=== PATIENT | male | born 1970 | race Caucasian/White ===

== ENCOUNTER 2021-11-05 05:54 | Inpatient (IN) | payer BC ==
[2021-11-05] MEDS ORDERED: SODIUM CHLORIDE 0.9% 1,000 ML IV STA (06:28)
[2021-11-05] MEDS ORDERED: SODIUM CHLORIDE 0.9% 500 ML 500 ML IV STA (06:28)
[2021-11-05] MEDS ORDERED: ONDANSETRON 4 MG/2 ML VIAL IVP STA (06:28)
[2021-11-05] MEDS ORDERED: HYDROmorphone 0.5 MG/0.5 ML SYRINGE IVP STA (06:28)
[2021-11-05 07:02] LABS: Basophils # (A) 0.2 k/uL (0-0.2); Basophils % (A) 2 %; Eosinophils # (A) 0.1 k/uL (0-0.7); Eosinophils % (A) 1 %; HCT 51.1 % (39.0-53.0); HGB 16.9 gm/dL (13.0-17.5); Lymphocytes # (A) 0.5 k/uL (1.0-4.8); Lymphocytes % (A) 7 %; MCH 32.2 pg (25.0-35.0); MCHC 33.1 g/dL (31.0-37.0); Mean Platelet Volume 7.2; Monocytes # (A) 0.8 k/uL (0-1.0); Monocytes % (A) 11 %; Neutrophils # (A) 5.6 k/uL (1.3-7.7); Neutrophils % (A) 77 %; Platelet Count 327 k/uL (150-450); RBC 5.26 m/uL (4.30-5.90); RDW 13.1 % (11.5-15.5); WBC 7.3 k/uL (3.8-10.6)
[2021-11-05 07:18] LABS: ALT 57 U/L (4-49); AST 61 U/L (17-59); African American GFR (CKD) >90 (>60 ml/min/1.73 sqM); Albumin 4.2 g/dL (3.5-5.0); Alkaline Phosphatase 146 U/L (38-126); Amylase 80 U/L (30-110); Anion Gap 11 mmol/L; Blood Urea Nitrogen 16 mg/dL (9-20); Carbon Dioxide 26 mmol/L (22-30); Chloride 100 mmol/L (98-107); Glucose 105 mg/dL (74-99); Lipase 112 U/L (23-300); Non-African American GFR(CKD) 88 (>60 ml/min/1.73 sqM); Potassium 4.4 mmol/L (3.5-5.1); Sodium 137 mmol/L (137-145); Total Bilirubin 0.5 mg/dL (0.2-1.3)
--- NOTE | 2021-11-05 07:25 | ED ---
Abdominal Pain HPI - General Chief Complaint: Abdominal Pain Stated Complaint: Abd Pain, Back Pain Time Seen by Provider: 11/05/21 06:15 Source: patient, RN notes reviewed Mode of arrival: ambulatory Limitations: no limitations - History of Present Illness Initial Comments: This a 51-year-old male presents emergency Department chief complaint of abdominal pain. Patient states his been having increasing abdominal pain in which she states she's not had a bowel movement in one week. Patient states she's had multiple surgeries back in 2011 after he fell when she had back, rib injuries, splenectomy, bowel resection. Patient states he feels like he has an obstruction he states he is not passing gas no stool states he did take a softener which made his abdomen hurt worse. Patient states she's been burping, increasing nausea and discomfort. No reported fever no chest pain or shortness of breath states he has burning in his back states his issues with his back after his fall. He denies any bowel, bladder incontinence or retention denies any saddle anesthesia - Related Data Allergies Allergy/AdvReac Type Severity Reaction Status Date / Time No Known Allergies Allergy Verified 06/26/21 08:58 Review of Systems ROS Statement: Those systems with pertinent positive or pertinent negative responses have been documented in the HPI. ROS Other: All systems not noted in ROS Statement are negative. Past Medical History Past Medical History: No Reported History History of Any Multi-Drug Resistant Organisms: None Reported Past Surgical History: Bowel Resection, Hernia Repair, Orthopedic Surgery Additional Past Surgical History / Comment(s): colostomy reversal, pelvic fx Past Psychological History: No Psychological Hx Reported Smoking Status: Current every day smoker Past Alcohol Use History: Occasional Past Drug Use History: Marijuana General Exam Limitations: no limitations General appearance: alert, in no apparent distress Head exam: Present: atraumatic, normocephalic, normal inspection Eye exam: Present: normal appearance, PERRL, EOMI. Absent: scleral icterus, conjunctival injection, periorbital swelling Neck exam: Present: normal inspection. Absent: tenderness, meningismus, lymphadenopathy Respiratory exam: Present: normal lung sounds bilaterally. Absent: respiratory distress, wheezes, rales, rhonchi, stridor Cardiovascular Exam: Present: normal rhythm, tachycardia, normal heart sounds. Absent: systolic murmur, diastolic murmur, rubs, gallop, clicks GI/Abdominal exam: Present: soft, tenderness, normal bowel sounds. Absent: distended, guarding, rebound, rigid Neurological exam: Present: alert Skin exam: Present: warm, dry, intact, normal color. Absent: rash Course Vital Signs 11/05/21 11/05/21 06:00 07:51 Temperature 98.5 F 100.7 F H Pulse Rate 122 H 99 Respiratory 24 20 Rate Blood Pressure 104/62 118/69 O2 Sat by Pulse 98 95 Oximetry Medical Decision Making - Medical Decision Making 51-year-old male presented for abdominal pain CT shows multiple hernias with some narrowing questionable early signs obstruction patient has had prior splenectomy which patient has developed a fever. Patient's lab work did not reveal any acute findings. Chest x-ray, COVID-19 were added pending urinalysis. I did discuss the case with Dr. Lu accepts admission. - Lab Data Result diagrams: 11/05/21 06:48 11/05/21 06:48 Lab Results 11/05/21 11/05/21 11/05/21 Range/Units 06:48 06:48 06:48 WBC 7.3 (3.8-10.6) k/uL RBC 5.26 (4.30-5.90) m/uL Hgb 16.9 (13.0-17.5) gm/dL Hct 51.1 (39.0-53.0) % MCV 97.0 (80.0-100.0) fL MCH 32.2 (25.0-35.0) pg MCHC 33.1 (31.0-37.0) g/dL RDW 13.1 (11.5-15.5) % Plt Count 327 (150-450) k/uL MPV 7.2 Neutrophils % 77 % Lymphocytes % 7 % Monocytes % 11 % Eosinophils % 1 % Basophils % 2 % Neutrophils # 5.6 (1.3-7.7) k/uL Lymphocytes # 0.5 L (1.0-4.8) k/uL Monocytes # 0.8 (0-1.0) k/uL Eosinophils # 0.1 (0-0.7) k/uL Basophils # 0.2 (0-0.2) k/uL Sodium 137 (137-145) mmol/L Potassium 4.4 (3.5-5.1) mmol/L Chloride 100 (98-107) mmol/L Carbon Dioxide 26 (22-30) mmol/L Anion Gap 11 mmol/L BUN 16 (9-20) mg/dL Creatinine 0.99 (0.66-1.25) mg/dL Est GFR (CKD-EPI)AfAm >90 (>60 ml/min/1.73 sqM) Est GFR (CKD-EPI)NonAf 88 (>60 ml/min/1.73 sqM) Glucose 105 H (74-99) mg/dL Plasma Lactic Acid [place] 1.1 (0.7-2.0) mmol/L Calcium 9.0 (8.4-10.2) mg/dL Total Bilirubin 0.5 (0.2-1.3) mg/dL AST 61 H (17-59) U/L ALT 57 H (4-49) U/L Alkaline Phosphatase 146 H (38-126) U/L Total Protein 7.0 (6.3-8.2) g/dL Albumin 4.2 (3.5-5.0) g/dL Amylase 80 (30-110) U/L Lipase 112 (23-300) U/L Disposition Clinical Impression: Abdominal pain, Fever, unknown origin, Hx of splenectomy, Abdominal hernia Disposition: ADMITTED IP TO THIS HOSP Condition: Fair Referrals: None,Stated [Primary Care Provider] - 1-2 days Time of Disposition: 08:56
[2021-11-05] MEDS ORDERED: ACETAMINOPHEN TAB 325 MG TAB PO STA (07:54)
--- NOTE | 2021-11-05 08:21 | CT ---
EXAMINATION TYPE: CT abdomen pelvis w con DATE OF EXAM: 11/05/2021 COMPARISON: None HISTORY: 51-year-old male N/V, fatigue, no bowel movements in 7 days TECHNIQUE: Contiguous axial scanning of the abdomen and pelvis following administration of 100 ml Iso alvina 300 IV contrast. Delayed images through the kidneys and coronal/sagittal reconstructions perform ed. CT DLP: 2877 mGycm Automated exposure control for dose reduction was used. FINDINGS: LUNG BASES: Some mild subpleural dependent atelectasis at both lung bases. No pleural effusion. LIVER/GB: Borderline enlarged at 17.8 cm. No focal liver lesion or biliary ductal dilatation. Portal venous system is patent. PANCREAS: No significant abnormality is seen. SPLEEN: Multiple posttraumatic left upper quadrant splenules. ADRENALS: No significant abnormality is seen. KIDNEYS: 2.4 cm cyst posterior right kidney there is symmetric uptake and excretion of contrast from both kidneys. Left kidney within normal limits. BOWEL: There is a large rectus diastases measuring 14.8 cm craniocaudal and 11.9 cm wide through whi ch omental, mesentery, and multiple small bowel loops and the mid transverse colon protrudes. The her niated contents measure 17.1 x 16.7 cm. In addition to the diastases, there is a left mid ventral abdominal wall hernia. The rectus abdominis defect measuring 5.8 x 3.3 cm. The hernia contains mesentery, vessels, and a number of nonobstructed small bowel loops. The sac measures up to 16.8 cm wide and 14.4 cm craniocaudal. However, there appears to be another superimposed hernia more superficial to this second hernia sac i n the left paramedian mid abdomen. This measures 8.3 x 6.3 cm (reference axial image 53 and sagittal image 109). This contains a few small bowel loops including a prominent but nondilated loop and there may be some narrowing at the neck of the hernia, refer to sagittal image 114 and axial image 47. There is a infraumbilical midline Bell hernia involving a small bowel loop, axial image 61. Scattered mild stool. Staple line at the distal sigmoid from prior resection and re-anastomosis. No p ericolonic inflammatory change. LYMPH NODES: Borderline and mildly enlarged upper abdominal lymph nodes, gastrohepatic ligament regio n measuring 1.6 cm, peripancreatic measuring 1.4 cm, and portacaval measuring 2.1 cm. A couple promi nent retroperitoneal nodes particularly periaortic measuring up to 1.2 cm. Short segment fusiform aneurysm infrarenal abdominal aorta 3.1 cm. PELVIS: Bladder is collapsed. Pelvic limits. No abnormal fluid collection in the pelvis or pelvic lym phadenopathy. BONES: Right-sided percutaneous screw fixation across the SI joints. Additional plate and screw fixat ion along the superior aspect of the pubic symphysis. Old healed left posterior ninth and 10th rib fr acture deformities. Mild multilevel degenerative changes throughout the lumbar spine. Degenerative gr zia 1 retrolisthesis L1-L2 and L3-L4. IMPRESSION: 1. COMPLEX VENTRAL ABDOMINAL WALL WITH A KEM RECTUS DIASTASES SAC MEASURING 17.1 X 16.7 CM CONTAINI NG MID TRANSVERSE COLON AND MULTIPLE NONOBSTRUCTED SMALL BOWEL LOOPS. 2. IN ADDITION TO THE RECTUS DIASTASES, THERE IS A LEFT MID VENTRAL ABDOMINAL WALL HERNIA THROUGH THE RECTUS ABDOMINOUS MUSCLE. THE HERNIA SAC MEASURES 16.8 X 14.4 CM CONTAINING A NUMBER OF NONOBSTRUCTI VE SMALL BOWEL LOOPS AND MESENTERY. 3. THIS SECOND HERNIA CONTAINS ANOTHER SUPERIMPOSED SMALLER HERNIA MORE SUPERFICIALLY LOCATED IN THE LEFT PARAMEDIAN MID ABDOMEN (AXIAL 53 AND SAGITTAL 109) MEASURING 8.3 X 6.3 CM. THIS CONTAINS A COUPL E PROMINENT BUT NONDILATED SMALL BOWEL LOOPS AND THERE MAY BE SOME NARROWING AT THE NECK OF THE HERNI A. PATIENT CAN BE CLINICALLY MONITORED TO ENSURE THAT OBSTRUCTION DOES NOT DEVELOP HERE. 4. A SMALL INFRAUMBILICAL MIDLINE BELL HERNIA INVOLVING A SMALL BOWEL LOOP. 5. BORDERLINE AND MILD TO MODERATELY ENLARGED UPPER ABDOMINAL LYMPH NODES MEASURING UP TO 2.1 CM. THE SE ARE NONSPECIFIC AND MAY BE REACTIVE/POST INFLAMMATORY. 3 MONTH FOLLOW-UP CT TO ENSURE STABILITY/RE SOLUTION. 6. SHORT SEGMENT INFRARENAL AAA AND 3.1 CM. 7. NO SIGNIFICANT STOOL BURDEN.
[2021-11-05] MEDS ORDERED: HYDROmorphone 1 MG/ML 1 ML SYRINGE IVP STA (08:51)
[2021-11-05] MEDS ORDERED: ACETAMINOPHEN TAB 325 MG TAB PO PRN (08:57)
[2021-11-05] MEDS ORDERED: NALOXONE 0.4 MG/ML 1 ML VIAL IV PRN (08:57)
[2021-11-05] MEDS ORDERED: HYDROmorphone 0.5 MG/0.5 ML SYRINGE IVP PRN (08:57)
--- NOTE | 2021-11-05 10:23 | XR ---
EXAMINATION TYPE: XR chest 1V DATE OF EXAM: 11/05/2021 COMPARISON: NONE HISTORY: Fever and difficulty breathing TECHNIQUE: Single frontal view of the chest is obtained. FINDINGS: There are overlying cardiac leads, artifacts. Question some minimal patchy basilar density , no effusion or pneumothorax evident. The cardiac silhouette size is within normal limits. The oss eous structures are intact. IMPRESSION: There may be some basilar atelectasis, difficult to exclude pneumonia, consider follow-u p PA and lateral chest x-ray when stable
[2021-11-05 11:17] LABS: Appearance,Urine Clear (Clear); Bilirubin,Urine Negative (Negative); Blood,Urine Trace (Negative); Color,Urine Yellow; Glucose,Urine (UA) Negative (Negative); Ketones,Urine 1+ (Negative); Leukocyte Esterase,Urine Negative (Negative); Mucus,Urine Moderate /hpf; Nitrite,Urine Negative (Negative); Protein,Urine 1+ (Negative); RBC,Urine 5 /hpf (0-5); Squamous Epithelial Cell,Urine <1 /hpf (0-4); Urobilinogen,Urine <2.0 mg/dL (<2.0); WBC,Urine 1 /hpf (0-5)
[2021-11-05 11:28] LABS: Specific Gravity,Urine >1.050 (1.001-1.035)
[2021-11-05] MEDS: SODIUM CHLORIDE 0.9% 1,000 ML IV SCH ×3 (12:48→21:01)
[2021-11-05] MEDS: HYDROmorphone 1 MG/ML 1 ML SYRINGE IVP PRN ×4 (12:50→21:45)
[2021-11-05] MEDS: ONDANSETRON 4 MG/2 ML VIAL IVP PRN (21:01)
[2021-11-06] MEDS: HYDROmorphone 1 MG/ML 1 ML SYRINGE IVP PRN ×6 (04:34→23:02)
[2021-11-06] MEDS: ONDANSETRON 4 MG/2 ML VIAL IVP PRN ×2 (04:58→16:16)
[2021-11-06] MEDS: SODIUM CHLORIDE 0.9% 1,000 ML IV SCH ×3 (10:39→21:16)
[2021-11-06 11:16] LABS: African American GFR (CKD) >90 (>60 ml/min/1.73 sqM); Anion Gap 8 mmol/L; Blood Urea Nitrogen 12 mg/dL (9-20); Calcium 8.1 mg/dL (8.4-10.2); Carbon Dioxide 29 mmol/L (22-30); Chloride 99 mmol/L (98-107); Glucose 97 mg/dL (74-99); Magnesium 1.8 mg/dL (1.6-2.3); Non-African American GFR(CKD) >90 (>60 ml/min/1.73 sqM); Potassium 4.4 mmol/L (3.5-5.1); Sodium 136 mmol/L (137-145)
[2021-11-06 11:28] LABS: Basophils # (A) 0.1 k/uL (0-0.2); Basophils % (A) 2 %; Eosinophils % (A) 0 %; HCT 45.5 % (39.0-53.0); Lymphocytes # (A) 0.8 k/uL (1.0-4.8); Lymphocytes % (A) 14 %; MCH 32.3 pg (25.0-35.0); MCHC 32.9 g/dL (31.0-37.0); MCV 98.1 fL (80.0-100.0); Mean Platelet Volume 7.2; Monocytes # (A) 0.6 k/uL (0-1.0); Monocytes % (A) 10 %; Neutrophils # (A) 3.9 k/uL (1.3-7.7); Neutrophils % (A) 70 %; Platelet Count 306 k/uL (150-450); RBC 4.63 m/uL (4.30-5.90); RDW 13.3 % (11.5-15.5); WBC 5.6 k/uL (3.8-10.6)
--- NOTE | 2021-11-06 11:32 | P.GSHP ---
History of Present Illness H&P Date: 11/05/21 Chief Complaint: Abdominal pain Is a 51-year-old male who presents emergency room with complaints of abdominal pain. Patient's extensive surgical history dating back 2011 after he fell from a second story roof. Patient currently had a ruptured spleen and colon injury requiring splenectomy and colostomy he's had subsequent reversal colostomy. Patient has a chronic patient's he's had abdominal pain for a few days. He states he has not had a bowel movement for 7 days. His CAT scan shows no signs of bowel obstruction. Past Medical History Past Medical History: No Reported History Additional Past Medical History / Comment(s): 2011 fall with multiple injuries including back injury/rib fractures/bowel perforation/R shoulder fracture/pelvic fracture/bladder rupture/had SPLENECTOMY//TBI level 3, chronic back pain since accident in 2011. History of Any Multi-Drug Resistant Organisms: None Reported Past Surgical History: Bowel Resection, Hernia Repair, Orthopedic Surgery, Tonsillectomy Additional Past Surgical History / Comment(s): Total of 7 surgeries for pelvic fracture, splenectomy, bladder surgery d/t rupture, bowel resection with colostomy then reversal, colonoscopies. Past Anesthesia/Blood Transfusion Reactions: No Reported Reaction Additional Past Anesthesia/Blood Transfusion Reaction / Comment(s): Pt has received blood in past without reaction. Past Psychological History: No Psychological Hx Reported Additional Psychological History / Comment(s): Pt resides with his significant other. He uses a cane prn. He is independent. Smoking Status: Current every day smoker Past Alcohol Use History: Occasional Additional Past Alcohol Use History / Comment(s): Pt started smoking in 1983. Past Drug Use History: Marijuana Additional Drug Use History / Comment(s): Pt smokes 1 joint a day for pain control. - Past Family History Mother Additional Family Medical History / Comment(s): Mother is from a blood clot per pt. Father Family Medical History: No Reported History Additional Family Medical History / Comment(s): Father is alive and healthy Medications and Allergies Home Medications Medication Instructions Recorded Confirmed Type No Known Home Medications 11/05/21 11/05/21 History Allergies Allergy/AdvReac Type Severity Reaction Status Date / Time No Known Allergies Allergy Verified 11/05/21 09:59 Surgical - Exam Vital Signs Temp Pulse Resp BP Pulse Ox 98.5 F 122 H 24 104/62 98 11/05/21 06:00 11/05/21 06:00 11/05/21 06:00 11/05/21 06:00 11/05/21 06:00 - General well developed, well nourished, no distress - Eyes PERRL - ENT normal pinna - Neck no masses - Respiratory normal expansion - Cardiovascular Rhythm: regular - Abdomen Minimally tender. There is no rebound or guarding Abdomen: soft Results - Labs 11/06/21 10:47 11/06/21 10:47 Abnormal Lab Results - Last 24 Hours (Table) 11/06/21 11/06/21 Range/Units 10:47 10:47 Lymphocytes # 0.8 L (1.0-4.8) k/uL Sodium 136 L (137-145) mmol/L Calcium 8.1 L (8.4-10.2) mg/dL Microbiology - Last 24 Hours (Table) 11/05/21 06:48 Blood Culture Gram Stain - Preliminary Blood Blood Culture - Preliminary Staphylococcus epidermidis 11/05/21 07:05 Blood Culture - Preliminary Blood No Growth after 24 hours 11/05/21 06:48 Blood Culture - Final Blood Diabetes panel 11/06/21 Range/Units 10:47 Sodium 136 L (137-145) mmol/L Potassium 4.4 (3.5-5.1) mmol/L Chloride 99 (98-107) mmol/L Carbon Dioxide 29 (22-30) mmol/L BUN 12 (9-20) mg/dL Creatinine 0.80 (0.66-1.25) mg/dL Glucose 97 (74-99) mg/dL Calcium 8.1 L (8.4-10.2) mg/dL Calcium panel 11/06/21 Range/Units 10:47 Calcium 8.1 L (8.4-10.2) mg/dL Pituitary panel 11/06/21 Range/Units 10:47 Sodium 136 L (137-145) mmol/L Potassium 4.4 (3.5-5.1) mmol/L Chloride 99 (98-107) mmol/L Carbon Dioxide 29 (22-30) mmol/L BUN 12 (9-20) mg/dL Creatinine 0.80 (0.66-1.25) mg/dL Glucose 97 (74-99) mg/dL Calcium 8.1 L (8.4-10.2) mg/dL Adrenal panel 11/06/21 Range/Units 10:47 Sodium 136 L (137-145) mmol/L Potassium 4.4 (3.5-5.1) mmol/L Chloride 99 (98-107) mmol/L Carbon Dioxide 29 (22-30) mmol/L BUN 12 (9-20) mg/dL Creatinine 0.80 (0.66-1.25) mg/dL Glucose 97 (74-99) mg/dL Calcium 8.1 L (8.4-10.2) mg/dL - Imaging CT scan - abdomen: report reviewed (CT reviewed. No sign of bowel obstruction.) Assessment and Plan Assessment: Abdominal pain, constipation, patient will receive fluid hydration. If he does not have significant vomiting may require a bowel prep. He'll be watched closely.
[2021-11-06] MEDS: PEG 3350 (236 GM/BTL) + LYTES 4,000 ML BOTTLE PO ONE ×2 (13:47→15:09)
[2021-11-06 14:46] VITALS: BMI 42.5
--- NOTE | 2021-11-06 15:41 | P.CONS ---
History of Present Illness - Reason for Consult Consult date: 11/06/21 Medical management, surgery admitted abdominal pain - History of Present Illness This is a 51-year-old male who does not currently have a primary care provider who presented to the emergency department with complaints of abdominal pain. Patient reports he's been having increasing abdominal pain and has not had a bowel movement in one week. Patient does have an extensive past medical history of multiple surgeries after suffering a fall in 2011 requiring some bowel removal out in [place] for gangrenous bowel and also had splenectomy with multiple rib injuries and bowel resection. Patient denies significant past medical history although has been having chronic pain in his back since the incident in 2011. Patient does not follow with pain management and continues to use tobacco and reports he smokes cannabis daily for pain control. In ED presentation labs reveal a normal white blood count of 7.3, hemoglobin was stable at 16.9, sodium was 137, potassium 4.4, creatinine 0.99, lactic acid 1.1, AST 61, ALT 57, alk phos 146, urinalysis was negative and COVID-19 was not detected. Lipase was 112 with an amylase of 80. Agent underwent CT abdomen and pelvis showing some mild subpleural dependent atelectasis at both lung bases with no pleural effusion, large rectus diastases measuring 14.8 cm craniocaudal and 11.9 cm wide through which omental, mesentery, and multiple small bowel loops in the mid transverse colon protrudes with a complex ventral abdominal wall with a feliciano rectus diastases sac and nonobstructed small bowel loops, left mid ventral abdominal wall hernia through the rectus abdominis muscle and another hernia with another superimposed small hernia more superficially located in the left paramedian mid abdomen with may be some narrowing at the neck of the hernia to be monitored clinically to ensure obstruction does not develop ear with a small infraumbilical midline Bell hernia involving a small bowel loop and some borderline in mild to moderately enlarged upper abdominal lymph nodes measuring up to 2.1 cm nonspecific and may be reactive postinflammatory recommending a 3 month follow-up to ensure stability/resolution with no significant stool burn noted noted. Patient did have 1 low-grade temp of 99.8 and chest x-ray showed no effusion or pneumothorax evident with some basilar atelectasis and difficult to exclude pneumonia. Will order a pro-calcitonin and empirically start Rocephin for now. Review Of Systems: Constitutional: Reports fever, reports chills, reports night sweats. No weight change. No weakness, fatigue or lethargy. No daytime sleepiness. EENT: No headache. No blurred vision or double vision, no loss of vision. No loss of Hearing, no ringing in the ears, no dizziness. No nasal drainage or congestion. No epistaxis. No sore throat. Lungs: No shortness of breath, cough, no sputum production. No wheezing. Cardiovascular: No chest pain, no lower extremity edema. No palpitations. No paroxysmal nocturnal dyspnea. No orthopnea. No lightheadedness or dizziness. No syncopal episodes. Abdominal: Ports abdominal pain. No nausea, vomiting. No diarrhea. Reports constipation with no bowel movement in one week. No bloody or tarry stools.. No loss of appetite. Genitourinary: No dysuria, increased frequency, urgency. No urinary retention. Musculoskeletal: No myalgias. No muscle weakness, no gait dysfunction, no frequent falls. No back pain. No neck pain. Integumentary: No wounds, no lesions. No rash or pruritus. No unusual brui sing. No change in hair or nails. Neurologic: No aphasia. No facial droop. No change in mentation. No head injury. No headache. No paralysis. No paresthesia. Psychiatric: No depression. No anxiety. No mood swings. Endocrine: No abnormal blood sugars. No weight change. No excessive sweating or thirst. No cold intolerance. PHYSICAL EXAMINATION: GENERAL: The patient is alert and oriented x4, Well developed, well nourished. Morbidly obese HEENT: Pupils are round and equally reacting to light. EOMI. no scleral icterus. No conjunctival pallor. Normocephalic, atraumatic. No pharyngeal erythema. No thyromegaly. CARDIOVASCULAR: S1 and S2 muffled PULMONARY: diminished breath sounds bilaterally with no wheezing or rhonchi noted. ABDOMEN: soft. Nontender on exam. obese. non-distended, hypoactive bowel sounds. No palpable organomegaly. MUSCULOSKELETAL: No joint swelling or deformity. EXTREMITIES: No cyanosis, clubbing, or pedal edema. NEUROLOGICAL: Gross neurological examination did not reveal any focal deficits. SKIN: No rashes. Assessment: Abdominal pain with constipation Past medical history of a fall in 2011 with multiple injuries including back injury, rib fractures, bowel perforation, shoulder fracture, bladder rupture and ultimately had splenectomy History of bowel resection and hernia repair out of [place] for gangrenous bowel Continued ongoing nicotine dependence Atelectasis noted on chest x-ray with difficulty excluding pneumonia did have one fever will empirically start antibiotics and order a pro-calcitonin Morbid obesity with a body mass index of 42.6 Continue THC use daily, patient reports for pain control GI prophylaxis DVT prophylaxis, SCDs, early ambulation Full code Plan: Recommend to continue with current medications and management per surgical services. Recommend conservative management with no plans for surgical intervention at this time. Recommend obtaining records out of [place] with his past medical history of multiple surgeries and bowel resection. Patient does not follow with a primary care provider and will establish in the [place] area and will provide resources. Patient does not want Dr. Pérez on follow-up as he went there although was ignored and not evaluated and left there prior to her arrival. Encouraged increased activity as tolerated and limiting the use of IV narcotics. Patient is being started on GoLYTELY bowel prep and will monitor for bowel movement and increasing abdominal pain. Recommend continue with IV hydration and will empirically start IV ceftriaxone and monitor for any further fevers. Pro-calcitonin ordered and pending at this time. Will also add incentive spirometer and encourage the patient to use at least 10 times every hour while awake. Recommend Protonix IV for GI prophylaxis and early ambulation. We will continue to follow with surgery during hospitalization. Thank you for this consultation. The impression and plan of care has been dictated by Kiara Talbert, nurse practitioner as directed. Dr. Phil MD I have performed a history and examination and MDM of this patient, discussed the same with the dictator, and agree with the dictator's assessment and plan as written ,documented as a scribe. Based on total visit time, I have performed more than 50% of the visit. Any additional findings or plans will be noted. Past Medical History Past Medical History: No Reported History Additional Past Medical History / Comment(s): 2012 fall with multiple injuries including back injury/rib fractures/bowel perforation/R shoulder fracture/pelvic fracture/bladder rupture/had SPLENECTOMY//TBI level 3, chronic back pain since accident in 2011. History of Any Multi-Drug Resistant Organisms: None Reported Past Surgical History: Bowel Resection, Hernia Repair, Orthopedic Surgery, Tonsillectomy Additional Past Surgical History / Comment(s): Total of 7 surgeries for pelvic fracture, splenectomy, bladder surgery d/t rupture, bowel resection with colostomy then reversal, colonoscopies. Past Anesthesia/Blood Transfusion Reactions: No Reported Reaction Additional Past Anesthesia/Blood Transfusion Reaction / Comm: Pt has received blood in past without reaction. Past Psychological History: No Psychological Hx Reported Additional Psychological History / Comment(s): Pt resides with his significant o ther. He uses a cane prn. He is independent. Smoking Status: Current every day smoker Past Alcohol Use History: Occasional Additional Past Alcohol Use History / Comment(s): Pt started smoking in 1983. Past Drug Use History: Marijuana Additional Drug Use History / Comment(s): Pt smokes 1 joint a day for pain control. - Past Family History Mother Additional Family Medical History / Comment(s): Mother is from a blood clot per pt. Father Family Medical History: No Reported History Additional Family Medical History / Comment(s): Father is alive and healthy Medications and Allergies Home Medications Medication Instructions Recorded Confirmed Type No Known Home Medications 11/05/21 11/05/21 History Allergies Allergy/AdvReac Type Severity Reaction Status Date / Time No Known Allergies Allergy Verified 11/05/21 09:59 Physical Exam Vitals: Vital Signs Temp Pulse Pulse Resp BP BP Pulse Ox 11/06/21 09:15 17 11/06/21 07:55 98.9 F 96 18 136/77 11/06/21 04:48 99.8 F H 94 16 108/70 91 L 11/06/21 02:00 18 11/05/21 20:00 15 11/05/21 19:07 99.2 F 100 15 116/73 96 11/05/21 17:29 108 H 20 99/56 96 11/05/21 16:42 99.7 F H 95 22 115/71 95 11/05/21 12:48 78 18 111/62 98 Intake and Output 11/05/21 11/06/21 11/06/21 22:59 06:59 14:59 Other: Voiding Method Toilet Toilet Results CBC & Chem 7: 11/06/21 10:47 11/06/21 10:47 Labs: Abnormal Lab Results - Last 24 Hours (Table) 11/05/21 Range/Units 11:11 Ur Specific [place] >1.050 H (1.001-1.035) Urine Protein 1+ H (Negative) Urine Ketones 1+ H (Negative) Urine Blood Trace H (Negative) Urine Mucus Moderate H (None) /hpf Microbiology - Last 24 Hours (Table) 11/05/21 06:48 Blood Culture Gram Stain - Preliminary Blood Blood Culture - Preliminary Staphylococcus epidermidis 11/05/21 07:05 Blood Culture - Preliminary Blood No Growth after 24 hours 11/05/21 06:48 Blood Culture - Final Blood
--- NOTE | 2021-11-06 16:28 | P.PN ---
Subjective Progress Note Date: 11/06/21 CHIEF COMPLAINT: Abdominal pain HISTORY OF PRESENT ILLNESS: Patient has chronic abdominal hernias. Patient's main complaint is feeling chills and sweats. He's had no further fevers. He is complaining of not having a bowel movement in 8 days. He denies any significant abdominal pain. He did have one blood culture that was contaminant. Chest x- ray had shown evidence of atelectasis. I he does claim some sinus congestion. Medicine service did add antibiotics empirically. White count is normal. No bowel obstruction noted on CAT scan. Patient was seen and examined with Dr. henry. Patient unhappy this afternoon about having to take the GoLYTELY prep and felt that no one was listening to him. Informed patient that we are all aware of his concerns. And there is no evidence of any acute infection going on at this time. And then Dr. henry did recommend the GoLYTELY for his constipation. Patient is now agreeable to proceed with the GoLYTELY PHYSICAL EXAM: VITAL SIGNS: Reviewed. GENERAL: Well-developed in no acute distress. HEENT: No sclera icterus. Extraocular movements grossly intact. Moist buccal mucosa. Head is atraumatic, normocephalic. ABDOMEN: Soft. Nondistended. Abdominal hernias reducible NEUROLOGIC: Alert and oriented. Cranial nerves II through XII grossly intact. ASSESSMENT: 1. Abdominal pain with constipation PLAN: -Continue IV fluids -GoLYTELY ordered for constipation. No plans for endoscopy -No surgical intervention planned -Discussed case with medicine service -Continue clear liquids -Encourage patient to ambulate Physician Metal Milling Machine Operator note has been reviewed by physician. Signing provider agrees with the documented findings, assessment, and plan of care. Objective - Vital Signs Vital signs: Vital Signs Temp 98.6 F 11/06/21 11:10 Pulse 84 11/06/21 11:10 Resp 18 11/06/21 11:10 BP 103/67 11/06/21 11:10 Pulse Ox 94 L 11/06/21 11:10 FiO2 Intake & Output 11/05/21 11/06/21 11/06/21 18:59 06:59 18:59 Weight 158.757 kg 158.757 kg Other: Voiding Method Toilet Toilet - Labs CBC & Chem 7: 11/06/21 10:47 11/06/21 10:47 Labs: Abnormal Lab Results - Last 24 Hours (Table) 11/06/21 11/06/21 Range/Units 10:47 10:47 Lymphocytes # 0.8 L (1.0-4.8) k/uL Sodium 136 L (137-145) mmol/L Calcium 8.1 L (8.4-10.2) mg/dL Microbiology - Last 24 Hours (Table) 11/05/21 06:48 Blood Culture Gram Stain - Preliminary Blood Blood Culture - Preliminary Staphylococcus epidermidis 11/05/21 07:05 Blood Culture - Preliminary Blood No Growth after 24 hours 11/05/21 06:48 Blood Culture - Final Blood
[2021-11-06] MEDS: PANTOPRAZOLE 40 MG/10 ML VIAL IVP SCH (21:13)
[2021-11-07] MEDS: HYDROmorphone 1 MG/ML 1 ML SYRINGE IVP PRN ×3 (02:36→09:09)
[2021-11-07] MEDS: SODIUM CHLORIDE 0.9% 1,000 ML IV SCH (08:02)
[2021-11-07] MEDS: PANTOPRAZOLE 40 MG/10 ML VIAL IVP SCH (08:02)
[2021-11-07] MEDS: ONDANSETRON 4 MG/2 ML VIAL IVP PRN (09:09)
--- NOTE | 2021-11-07 12:56 | P.PN ---
Subjective Progress Note Date: 11/07/21 - Reason for Consult Consult date: 11/06/21 Medical management, surgery admitted abdominal pain - History of Present Illness This is a 51-year-old male who does not currently have a primary care provider who presented to the emergency department with complaints of abdominal pain. Patient reports he's been having increasing abdominal pain and has not had a bowel movement in one week. 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 Patient denies significant past medical history although has been having chronic pain in his back since the incident in 2011. Patient does not follow with pain management and continues to use tobacco and reports he smokes cannabis daily for pain control. In ED presentation labs reveal a normal white blood count of 7.3, hemoglobin was stable at 16.9, sodium was 137, potassium 4.4, creatinine 0.99, lactic acid 1.1, AST 61, ALT 57, alk phos 146, urinalysis was negative and COVID-19 was not detected. Lipase was 112 with an amylase of 80. Agent underwent CT abdomen and pelvis showing some mild subpleural dependent atelectasis at both lung bases with no pleural effusion, large rectus diastases measuring 14.8 cm craniocaudal and 11.9 cm wide through which omental, mesentery, and multiple small bowel loops in the mid transverse colon protrudes with a complex ventral abdominal wall with a feliciano rectus diastases sac and nonobstructed small bowel loops, left mid ventral abdominal wall hernia through the rectus abdominis muscle and another hernia with another superimposed small hernia more superficially located in the left paramedian mid abdomen with may be some narrowing at the neck of the hernia to be monitored clinically to ensure obstruction does not develop ear with a small infraumbilical midline Bell hernia involving a small bowel loop and some borderline in mild to moderately enlarged upper abdominal lymph nodes measuring up to 2.1 cm nonspecific and may be reactive postinflammatory recommending a 3 month follow-up to ensure stability/resolution with no significant stool burn noted noted. Patient did have 1 low-grade temp of 99.8 and chest x-ray showed no effusion or pneumothorax evident with some basilar atelectasis and difficult to exclude pneumonia. Will order a pro-calcitonin and empirically start Rocephin for now. 11/07/2021 Patient is seen and evaluated in follow-up this morning and was able to tolerate the GoLYTELY prep and has had bowel movements. Patient reports he continues to be liquid and appears rather agitated on exam. Patient was admitted under surgical services and patient reports that physician does not need to return. Per nursing staff continuing to request IV pain medications and encourage the patient to avoid this if possible. Patient denies abdominal pain on palpation during exam and reports he is passing gas. Patient was tolerating clear liquids and recommend slowly advancing over the next few days as tolerated. Patient has no primary care provider and encourage the patient to establish with one. Patient is afebrile denies chest pain or shortness of breath. Patient reports he is up and walking and voiding with no difficulties. Incentive spirometer at the bedside and encourage the patient to continue using at least 10 times every hour while awake. Patient is afebrile and was given 2 doses of empiric antibiotics in the form of ceftriaxone as pro-calcitonin was 0.24. White blood count remains normal. Patient will likely be discharged today by surgical services. Review of systems: Constitutional: No reports of fatigue, fever, or chills Cardiovascular: No reports of chest pain or palpitations Respiratory: No reports of shortness of breath or cough GI: No reports of nausea, vomiting, reporting loose stool since yesterday evening after GoLYTELY prep and reports passing gas : No reports of dysuria or retention Neurovascular: No reports of weakness or numbness All medications have been reviewed PHYSICAL EXAMINATION: GENERAL: The patient is alert and oriented x4, Well developed, well nourished. Morbidly obese HEENT: Pupils are round and equally reacting to light. EOMI. no scleral icterus. No conjunctival pallor. Normocephalic, atraumatic. No pharyngeal erythema. No thyromegaly. CARDIOVASCULAR: S1 and S2 muffled PULMONARY: diminished breath sounds bilaterally with no wheezing or rhonchi not ed. ABDOMEN: soft. Nontender on exam. obese. non-distended, hypoactive bowel sounds. No palpable organomegaly. MUSCULOSKELETAL: No joint swelling or deformity. EXTREMITIES: No cyanosis, clubbing, or pedal edema. NEUROLOGICAL: Gross neurological examination did not reveal any focal deficits. SKIN: No rashes. 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 Recommend conservative management with no plans for surgical intervention at this time. Recommend obtaining records out of [place] with his past medical history of multiple surgeries and bowel resection. Patient does not follow with a primary care provider and will establish in the [place] area and will provide resources. Patient does not want Dr. Pérez on follow-up as he went there and reports he was ignored and not evaluated and left there prior to her arrival. Encouraged increased activity as tolerated and limiting the use of IV narcotics. Patient is being started on GoLYTELY bowel prep and tolerated and is having bowel movements although reports they continue to be loose. Patient was continued on IV hydration and was empirically started on antibiotics and pro- calcitonin was relatively low will discontinue antibiotics. Patient will likely be discharged from surgical services today. We will continue to follow with surgery during hospitalization. Thank you for this consultation. The impression and plan of care has been dictated by Kiara Talbert, nurse practitioner as directed. Dr. Phil MD I have performed a history and examination and MDM of this patient, discussed the same with the dictator, and agree with the dictator's assessment and plan as written ,documented as a scribe. Based on total visit time, I have performed more than 50% of the visit. Any additional findings or plans will be noted. Objective - Vital Signs Vital signs: Vital Signs Temp 98.5 F 11/07/21 07:36 Pulse 85 11/07/21 07:36 Resp 17 11/07/21 07:36 BP 113/77 11/07/21 07:36 Pulse Ox 93 L 11/07/21 07:36 FiO2 Intake & Output 11/06/21 11/07/21 11/07/21 18:59 06:59 18:59 Intake Total 1560 500 Output Total 1000 300 Balance 1560 -500 -300 Weight 158.757 kg Intake: Intake, IV Titration 1560 Amount Sodium Chloride 0.9% 1, 1560 000 ml @ 130 mls/hr IV . [id number] [facility] Rx#:[id number] Oral 500 Output: Urine 1000 300 Other: Voiding Method Toilet Toilet # Bowel Movements 2 - Labs CBC & Chem 7: 11/06/21 10:47 11/06/21 10:47 Labs: Abnormal Lab Results - Last 24 Hours (Table) 11/06/21 11/06/21 11/06/21 Range/Units 10:47 10:47 10:47 Lymphocytes # 0.8 L (1.0-4.8) k/uL Sodium 136 L (137-145) mmol/L Calcium 8.1 L (8.4-10.2) mg/dL Procalcitonin 0.26 H (0.02-0.09) ng/mL Microbiology - Last 24 Hours (Table) 11/05/21 07:05 Blood Culture - Preliminary Blood No Growth after 48 hours 11/05/21 06:48 Blood Culture Gram Stain - Preliminary Blood Blood Culture - Preliminary Staphylococcus epidermidis
--- NOTE | 2021-11-07 12:59 | P.DS ---
Providers Date of admission: 11/05/21 09:50 Expected date of discharge: 11/07/21 Attending physician: Murphy Lu Consults: 11/06/21 08:17 Consult Physician Routine Consulting Provider: Aakash Panda Consult Reason/Comments: medical management Do you want consulting provider notified?: Yes Primary care physician: Stated None Hospital Course: Discharge diagnosis 1. Abdominal pain with constipation 2. Multiple abdominal hernias Hospital course This is a 51-year-old male who presented with abdominal pain. Patient's extensive surgical history dating back 2011 after he fell from a second story roof. Patient currently had a ruptured spleen and colon injury requiring splenectomy and colostomy he's had subsequent reversal colostomy. Patient presented with abdominal pain for a few days. He reported no bowel movement for 7 days. His CAT scan showed no evidence of bowel obstruction it did reveal multiple abdominal hernias. Patient was given IV fluids and GoLYTELY to treat constipation. Patient did have bowel movements and flatus. He is tolerating diet. He reports no abdominal pain. He has been up and ambulating. He is stable for discharge. Please refer to chart for any further details. Physician Tuber Helper note has been reviewed by physician. Signing provider agrees with the documented findings, assessment, and plan of care. Patient Condition at Discharge: Stable Plan - Discharge Summary Discharge Rx Participant: No New Discharge Prescriptions: No Action No Known Home Medications Discharge Medication List No Known Home Medications 11/05/21 [History] Follow up Appointment(s)/Referral(s): None,Stated [Primary Care Provider] - 1-2 days Activity/Diet/Wound Care/Special Instructions: Continue full liquid diet today and advance diet as tolerated at home Discharge Disposition: HOME SELF-CARE
[2021-11-07 13:20] VITALS: BP 111/72; PULSE 74; RESP 18; TEMP 97.7
== END 2021-11-07 14:41 | disposition home or self-care (01) | DRG 392 ==
LOC: EC 05:54 → 5NMEDONC 09:50
PROVIDERS: ADMIT Surgery; ATTEND Surgery
DX: K59.00 Constipation, unspecified (principal); Z68.41 Body mass index [BMI] 40.0-44.9, adult; J98.11 Atelectasis; E66.01 Morbid (severe) obesity due to excess calories; K43.9 Ventral hernia without obstruction or gangrene; Z20.822 Contact with and (suspected) exposure to COVID-19; G89.29 Other chronic pain; M54.9 Dorsalgia, unspecified; F17.200 Nicotine dependence, unspecified, uncomplicated; Z71.6 Tobacco abuse counseling; Z91.81 History of falling; Z87.828 Personal history of other (healed) physical injury and trauma; Z90.81 Acquired absence of spleen; Z90.49 Acquired absence of other specified parts of digestive tract; Z71.3 Dietary counseling and surveillance
CPT/HCPCS: 36415; 71045; 74177; 80048; 80053; 81001; 82150; 83605; 83690; 83735; 84145; 85025; 87040; 87635; 96361; 96374; 96375; 96376; 99285

== ENCOUNTER 2023-10-13 11:01 | Emergency (ER) | payer BC ==
[2023-10-13 11:20] VITALS: TEMP 97.7
[2023-10-13 12:00] LABS: Basophils # (A) 0.1 k/uL (0-0.2); Basophils % (A) 1 %; Eosinophils # (A) 0.3 k/uL (0-0.7); Eosinophils % (A) 2 %; HCT 48.6 % (39.0-53.0); HGB 15.8 gm/dL (13.0-17.5); Lymphocytes # (A) 2.6 k/uL (1.0-4.8); Lymphocytes % (A) 20 %; MCH 31.9 pg (25.0-35.0); MCHC 32.5 g/dL (31.0-37.0); MCV 98.3 fL (80.0-100.0); Monocytes # (A) 1.4 k/uL (0-1.0); Monocytes % (A) 11 %; Neutrophils # (A) 8.4 k/uL (1.3-7.7); Neutrophils % (A) 64 %; Platelet Count 556 k/uL (150-450); RBC 4.95 m/uL (4.30-5.90); RDW 13.4 % (11.5-15.5); WBC 13.2 k/uL (3.8-10.6)
--- NOTE | 2023-10-13 12:18 | XR ---
EXAMINATION TYPE: XR chest 2V DATE OF EXAM: 10/13/2023 11:55 AM CLINICAL INDICATION: Male, 53 years old with history of difficulty breathing; COMPARISON: Chest radiographs from 11/05/2021 TECHNIQUE: XR chest 2V Frontal view of the chest. FINDINGS: Lungs/Pleura: There is no evidence of pleural effusion, focal consolidation, or pneumothorax. Pulmonary vascularity: Unremarkable. Heart/mediastinum: Cardiomediastinal silhouette is unremarkable. Musculoskeletal: No acute osseous pathology. Other findings: None IMPRESSION: No acute cardiopulmonary disease/process.
[2023-10-13 12:21] LABS: ALT 25 U/L (4-49); AST 28 U/L (17-59); African American GFR (CKD) >90 (>60 ml/min/1.73 sqM); Alkaline Phosphatase 99 U/L (38-126); Anion Gap 5 mmol/L; Blood Urea Nitrogen 13 mg/dL (9-20); Calcium 9.6 mg/dL (8.4-10.2); Carbon Dioxide 27 mmol/L (22-30); Chloride 107 mmol/L (98-107); Glucose 89 mg/dL (74-99); Magnesium 2.1 mg/dL (1.6-2.3); Non-African American GFR(CKD) >90 (>60 ml/min/1.73 sqM); Sodium 139 mmol/L (137-145); Total Bilirubin 0.5 mg/dL (0.2-1.3); Total Protein 6.9 g/dL (6.3-8.2)
[2023-10-13 12:22] LABS: INR 0.9 (<1.2)
[2023-10-13 12:23] LABS: Partial Thromboplastin Time 25.8 sec (22.0-30.0); Prothrombin Time 10.3 sec (10.0-12.5)
[2023-10-13 12:28] LABS: Appearance,Urine Cloudy (Clear); Bilirubin,Urine Negative (Negative); Blood,Urine Negative (Negative); Color,Urine Yellow; Glucose,Urine (UA) Negative (Negative); Hyaline Casts,Urine 1 /lpf (0-2); Ketones,Urine Negative (Negative); Leukocyte Esterase,Urine Negative (Negative); Mucus,Urine Moderate /hpf; Nitrite,Urine Negative (Negative); PH, Urine 7.5 (5.0-8.0); Protein,Urine Trace (Negative); RBC,Urine 1 /hpf (0-5); Specific Gravity,Urine 1.024 (1.001-1.035); Squamous Epithelial Cell,Urine <1 /hpf (0-4); WBC,Urine 1 /hpf (0-5)
[2023-10-13 12:28] LABS: NT-Pro-B-Type Natriuretic Pept 32 pg/mL
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
--- NOTE | 2023-10-13 13:46 | CT ---
EXAMINATION TYPE: CT chest angio for PE DATE OF EXAM: 10/13/2023 COMPARISON: None HISTORY: Exertional dyspnea, SOB, had Covid [address] DLP: 1141.4 mGycm Automated exposure control for dose reduction was used. CONTRAST: CT Chest for pulmonary embolism performed with with IV Contrast, patient injected with 100 mL of Isov ue 370. FINDINGS: LUNGS: Diffuse emphysematous changes. No consolidative pneumonia. No pulmonary edema. MEDIASTINUM: There is no evidence of central pulmonary embolism. Third order and distal branches limi godwin in assessment due to suboptimal enhancement. There are no greater than 1 cm hilar or mediastinal lymph nodes. No pericardial effusion is seen. OTHER: Large anterior abdominal wall hernia containing segments of bowel. Small hiatal hernia. Multi ple soft tissue nodules in the left upper quadrant may represent residual splenules correlate clinica lly. Degenerative changes of the spine with remote rib fractures incidentally noted. Trace a gynecomastia. IMPRESSION: 1. Diffuse COPD\emphysematous changes. 2. Limited exam secondary to suboptimal enhancement and artifact demonstrates no central pulmonary em bolism. Third order and distal branches limited and cannot exclude a pulmonary embolism in this distr ibution. Follow-up recommendations for incidental pulmonary nodules are per [employer] or [employer].
[2023-10-13 14:31] VITALS: BP 138/87; PULSE 90; RESP 18
== END 2023-10-13 14:57 | disposition home or self-care (01) ==
LOC: EC 11:01
DX: J44.9 Chronic obstructive pulmonary disease, unspecified (principal); F17.200 Nicotine dependence, unspecified, uncomplicated; Z86.16 Personal history of COVID-19
CPT/HCPCS: 36415; 93005; 85379; 83880; 80053; 83605; 83735; 84484; 85025; 85610; 85730; 81001; 71046; 71275; 99285; Q9967